=== PATIENT | male | born 1935 | race Caucasian/White ===

== ENCOUNTER 2017-01-30 11:59 | Inpatient (IN) | payer MEDICARE, OTHER ==
[~2017-01-30] VITALS: Ht 167.6 cm; Wt 85.6 kg
--- NOTE | ~2017-01-30 | CO ---
Unit #: [id number] #: [id number] Patient: MENDOZA WIGGINS [id number] [address] [place], [place] [address] [id number] MR#: [id number] NAME: MENDOZA WIGGINS ROOM: 560 Age: 81 Sex: M Admission Date: 01/30/2017 : 1935 Attending Physician: Harpreet Santillan M.D. Primary Care Physician: Mendoza Malin D.O. Consultation Date: 01/30/2017 CONSULTATION REPORT REASON FOR CONSULTATION Renal insufficiency. Thank you very much for asking me to see this patient in consultation. HISTORY OF PRESENT ILLNESS Mr. Wiggins is an 81-year-old male, who presented to the hospital earlier today, complaining of increased swelling in his legs and penis. Upon presentation, noted to have a BUN and creatinine of 71 and 3.5. Because of this, I was asked to see the patient. The patient states he has never had any problems with his kidneys that he knows of. He has a history of BPH, but he denies ever having any prostate problems. He has a history of hypertension. He states he just had been feeling well over the last few weeks and his swelling has been worse over the last 2 weeks. He had some diarrhea a couple of weeks ago, but that resolved. He denies any chest pain or shortness of breath. He denies taking any nonsteroidals. 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 ALLERGIES Include sulfa. SOCIAL HISTORY He lives alone. He does not smoke or drink. MEDICATIONS His medicines at home include hydrochlorothiazide, aspirin, Zyloprim, Glucotrol, Lipitor, aspirin, metoprolol, Lotrel. FAMILY HISTORY Negative for kidney disease. REVIEW OF SYSTEMS He denies any fevers, chills, visual problems, sinus problems, cough, hemoptysis, sore throat, or difficulty swallowing. No neck pain or neck stiffness. Denies any chest pain, chest heaviness, or palpitations. Denies any severe shortness of breath. He denies any severe abdominal pain, nausea, vomiting, or diarrhea in the last few days. He denies any urinary symptoms; starting, stopping or burning. He says again he has had some increased swelling over the last several weeks or so. He denies any recent seizures or strokes. Unit #: [id number] #: [id number] Patient: MENDOZA WIGGINS PHYSICAL EXAMINATION GENERAL: He is alert. VITAL SIGNS: Temperature is 97.9, pulse 78, blood pressure is 170/78. HEENT: He is normocephalic and atraumatic. Pupils are equal, round, and reactive to light. Extraocular muscles are intact. Hearing appears to be normal. Mouth is clear. No erythema. No exudate. NECK: Supple. No adenopathy. CARDIAC: He appears to have a regular rhythm without a rub. No S3 or S4. LUNGS: Fairly clear bilaterally. ABDOMEN: Overweight, bowel sounds positive. EXTREMITIES: He has 2 to 3+ lower extremity swelling. : He has positive penile swelling. SKIN: He has some mild erythema in bilateral lower extremities. NEURO: He is alert and oriented. Appears to be grossly intact. DIAGNOSTIC STUDIES LABORATORY RESULTS: Sodium 141, potassium 4.0, chloride is 104, bicarb is 26, BUN and creatinine 71 and 3.5, glucose 114, calcium is 9.2. CPK is 27. Hemoglobin is 12.6, white count 6400, platelets 181,000. His UA shows specific gravity of 1.016, no protein, 2 to 5 rbc's, 2 to 5 wbc's. In 2008 creatinine 1.1, in 2009 creatinine 1.0 to 1.2 and in 2010 creatinine 1.1 that is the last I have. ASSESSMENT AND PLAN Acute renal failure. The patient assume he has acute renal failure, although I do not have any creatinine between 2010 and now. The patient does not have a Lezama catheter in and it appears to have about 2 L of urine in it. When I asked about nurse states that he had about 500 when she placed it, but she had not checked since then. Certainly, he does have volume overload on exam, but I suspect with the amount of volume he has in his Lezama that he probably has obstructive uropathy as a cause of his kidney failure. The renal ultrasounds have already been ordered, although not back yet. We will go ahead and keep Lezama in. We will have to see the patient and hopefully we would release the obstruction if that is what it is, his renal function should improve as well as his volume status should improve. His urine again, no proteinuria and only a couple of rbc's, so I am not sure if he has any active glomerulonephritis. I will go ahead and check serum protein immunofixation secondary to his age and just watch his kidney function and certainly, if it does not improve, then we will consider further workup and treatment. For now, would recommend holding his Lotrel secondary to swelling and his renal failure with the KOKI inhibitor. Hold his Lotrel for now. Certainly, we would avoid contrast dye as well as nonsteroidals and other nephrotoxins as possible. Dictated by..Erica Capps/blu TD: 01/31/2017 00:45 JOB #: [id number] Unit #: [id number] #: [id number] Patient: MENDOZA WIGGINS CONSULTATION REPORT Page 1 of 1 X Venu Valle MD X CONSULTATION REPORT
--- NOTE | ~2017-01-30 | US77 ---
[facility] A Service of [facility] RADIOLOGY TEXT RESULTS PATIENT: MENDOZA WIGGINS LOCATION: [facility] [address] : 34 UNIT #: [id number] AGE: [address]: Harpreet Santillan MD SEX: M ORDER DR: [id number] [facility] [address] [facility]. [place], [place] [address] [id number] I MR#: [id number] Acc #: [id number] NAME: MENDOZA WIGGINS : 1935 SEX: M STUDY DATE/TIME: 01/31/2017 8:14 UNIT: [facility] ROOM: [facility] STUDY DESCRIPTION: US Kidney Bilateral Complete Attending Physician: Harpreet Santillan M.D. Ordering Physician: Kathleen Esteban M.D. Primary Care Physician: Mendoza Malin D.O. MEDICAL IMAGING REPORT This report is preliminary unless electronic signature is present EXAM Renal ultrasound INDICATIONS Acute kidney. BUN 62, creatinine 2.7, eGFR 21. TECHNIQUE Lacy-scale and Doppler imaging of the bladder. COMPARISON 01/30/2017. FINDINGS The right kidney measures 15.6 cm in length. Cortical thickness 1.4 cm. Large cyst lower pole right kidney, measuring up to 9.9 cm is only partially seen. Left kidney measures 11.2 cm. No hydronephrosis. Bladder decompressed by a Lezama catheter. IMPRESSION Bladder decompressed by a Lezama catheter. No hydronephrosis. Large, partially seen cyst at the lower pole right kidney. Dictated by... Peterson Low M.D. THIS IS AN ELECTRONICALLY VERIFIED REPORT Peterson Low M.D. at 02/01/2017 8:27 AM EED/re TD: 01/31/2017 15:52 JOB #: [id number] [facility] A Service of [facility] RADIOLOGY TEXT RESULTS PATIENT: MENDOZA WIGGINS LOCATION: [facility] 560 : 34 UNIT #: [id number] AGE: [address]: Harpreet Santillan MD SEX: M ORDER DR: MEDICAL IMAGING REPORT Page 1 of 1 COPY
--- NOTE | ~2017-01-30 | CT4 ---
[facility] A Service of [facility] RADIOLOGY TEXT RESULTS PATIENT: MENDOZA WIGGINS LOCATION: C5B 560-01 : 34 UNIT #: [id number] AGE: [address]: Harpreet Santillan MD SEX: M ORDER DR: [id number] [place] [id number] [facility]. [place], [place] [address] [id number] I MR#: [id number] Acc #: [id number] NAME: MENDOZA WIGGINS : 1935 SEX: M STUDY DATE/TIME: 01/30/2017 19:31 UNIT: C5B ROOM: [facility] STUDY DESCRIPTION: CT Abd and Pelv Wo Cont Attending Physician: Harpreet Santillan M.D. Ordering Physician: Richard Grossman M.D. Primary Care Physician: Mendoza Malin D.O. MEDICAL IMAGING REPORT This report is preliminary unless electronic signature is present EXAM CT abdomen and pelvis without contrast HISTORY Abdominal pain and groin pain and swelling x4 days, dysuria x1 week history of prior colon resection. COMPARISON CT abdomen and pelvis 09/08/[address] exam was performed with one or more of the following radiation dose reduction techniques: automatic exposure control, adjustment of mA and/or kV according to patient size, and iterative reconstruction. FINDINGS Axial images performed through the abdomen and pelvis without contrast. Multiplanar reconstructed images. Abdomen: Lung bases unremarkable. Liver, spleen and gallbladder unremarkable. Pancreas unremarkable. Probable mild adrenal hyperplasia. Bilateral hydronephrosis and hydroureter possibly related to bladder outlet obstruction as the bladder is markedly distended with a thickened wall. Large exophytic cyst off the lower pole right kidney. Stomach, small bowel unremarkable. Moderate amount of colonic stool. Pelvis: The bladder is markedly distended. Small amount of gas noted in the bladder. There are multiple calcifications in the dependent portion of the bladder which may represent bladder stones or less likely passed ureteral stones. The largest measures about 6.5 mm. There is enlarged prostate. The Lezama catheter is positioned within the prostatic urethral with the balloon inflated. Repositioning recommended. Osseous structures [facility] A Service of [facility] RADIOLOGY TEXT RESULTS PATIENT: MENDOZA WIGGINS LOCATION: C5B 560-01 : 34 UNIT #: [id number] AGE: [address]: Harpreet Santillan MD SEX: M ORDER DR: remarkable for advanced arthritic change of the right hip. There is extensive multilevel degenerative disc disease and scoliosis lumbar spine. IMPRESSION 1. CT findings suggesting bladder outlet obstruction which may be due to prostatic enlargement and malpositioned Lezama catheter. There is marked distension of bladder as well as moderate bilateral hydronephrosis and hydroureter. 2. At least 3-4 calcifications seen in the dependent portion of the bladder which may represent bladder stones or less likely passed ureteral stones. 3. Malpositioned Lezama catheter with the balloon inflated at prostatic urethra. 4. Advanced arthritic changes right hip and lumbar spine. 5. Findings will be called to the floor following this dictation. Dictated by... Shahida Costello M.D. THIS IS AN ELECTRONICALLY VERIFIED REPORT Shahida Costello M.D. at 01/31/2017 5:39 PM Ni TD: 01/31/2017 08:30 JOB #: [id number] MEDICAL IMAGING REPORT Page 1 of 1 COPY
--- NOTE | ~2017-01-30 | CR72 ---
[facility] A Service of [facility] RADIOLOGY TEXT RESULTS PATIENT: MENDOZA WIGGINS LOCATION: C5B 560-01 : 34 UNIT #: [id number] AGE: [address]: Harpreet Santillan MD SEX: M ORDER DR: [id number] [facility] [address] [facility]. [place], [place] [address] [id number] I MR#: [id number] Acc #: [id number] NAME: MENDOZA WIGGINS : 1935 SEX: M STUDY DATE/TIME: 01/30/2017 14:36 UNIT: [facility] ROOM: [facility] STUDY DESCRIPTION: CR Chest Single View Portable Attending Physician: Kathleen Esteban M.D. Ordering Physician: Baljit Christian M.D. Primary Care Physician: Mendoza Malin D.O. MEDICAL IMAGING REPORT This report is preliminary unless electronic signature is present EXAM Chest x-ray one-view portable HISTORY Short of air, groin swelling, symptoms for 4 days. History of colon cancer, diabetes, essential hypertension. COMMENT Single frontal portable view of the chest timed 14:36 on 01/30/2017 compared to 06/26/2007. There is an artifact over the upper chest. There has been removal of a tunneled catheter since previous. There is mild elevation of the right hemidiaphragm with blunting at the right costophrenic angle, increased from previous. Cardiac silhouette size is top normal. There is likely vascular congestion and interstitial edema with patchy central airspace disease. There is also evidence for old granulomatous disease. No definite pleural effusion on the left. No pneumothorax. Cannot exclude some right pleural fluid versus pleural thickening. IMPRESSION 1. There is some type of artifact on the chest. 2. Interval worsening in the appearance of the chest with likely the development of vascular congestion and interstitial edema with some patchy central airspace disease. Please correlate for congestive failure clinically. Followup to ensure resolution recommended. 3. There is elevation of the right hemidiaphragm increased from previous with blunting of the right costophrenic angle which could be due to pleural fluid or pleural thickening. Dictated by... [facility] A Service of [facility] RADIOLOGY TEXT RESULTS PATIENT: MENDOZA WIGGINS LOCATION: [facility] 560-01 : 34 UNIT #: [id number] AGE: [address]: Harpreet Santillan MD SEX: M ORDER DR: Jazmín Marina M.D. THIS IS AN ELECTRONICALLY VERIFIED REPORT Jazmín Marina M.D. at 01/31/2017 7:57 AM MIKEL/cora TD: 01/31/2017 01:00 JOB #: [id number] MEDICAL IMAGING REPORT Page 1 of 1 COPY
--- NOTE | ~2017-01-30 | CO ---
Unit #: [id number] #: [id number] Patient: MENDOZA WIGGINS [id number] [address] [place], [place] [address] [id number] MR#: [id number] NAME: MENDOZA WIGGINS ROOM: 560 Age: 81 Sex: M Admission Date: 01/30/2017 : 1935 Attending Physician: Harpreet Santillan M.D. Primary Care Physician: Mendoza Malin D.O. Consultation Date: 01/31/2017 CONSULTATION REPORT DICTATED FOR Viral Portillo M.D. REASON FOR CONSULT Lower extremity edema. 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 He also has never been a smoker. The patient presented to the [facility] ED on 01/30/2017 with complaints of scrotal edema. The patient states that he has had the scrotal edema for the last 2 weeks and he also has noted lower extremity swelling for the last 4 to 5 weeks. In the ED, the patient had a CT scan of the abdomen and pelvis that showed bladder outlet obstruction possibly secondary to an enlarged prostate with marked bladder distention, moderate bilateral hydronephrosis, and hydroureter. He also had a chest x-ray that showed some vascular congestion. The patient had a stress test in 2006 that showed no ischemia with an EF of 60%. The patient has had no further cardiac workup since that time. The patient denies any kind of chest pain, pressure, or tightness. No nausea or vomiting. No palpitations. No syncope. No presyncope. No lightheadedness or dizziness and no shortness of breath with exertion. Cardiology was asked to evaluate the patient for possible heart failure with the lower extremity edema as well as the vascular congestion on x-ray. PAST MEDICAL HISTORY 1. Hypertension, controlled. 2. Hyperlipidemia, controlled. 3. Diabetes, controlled with an A1c of 5.5. 4. Stress test in 2006 that showed no ischemia with an EF of 60%. 5. Never smoker. PAST SURGICAL HISTORY 1. Hip surgery. 2. Colon surgery. SOCIAL HISTORY The patient lives alone, where he does his own laundry; however, he has someone who does his cleaning for him as well as getting his groceries and taking care of the trash for him. The patient does use a walker to get Unit #: [id number] #: [id number] Patient: MENDOZA WIGGINS. He states that he ambulates in his house mostly but does not get any shortness of breath with exertion. The patient has never been a smoker. Denies alcohol abuse or any other illicit drug abuse. FAMILY HISTORY The patient has no family history of heart disease, [place], congestive heart failure, or anything else cardiac related. ALLERGIES Include sulfa. HOME MEDICATIONS Include Zyloprim 100 mg p.o. daily, Inderal 120 mg p.o. daily, primidone 100 mg p.o. at bedtime, Neurontin 300 mg p.o. daily, Lipitor 40 mg p.o. daily. REVIEW OF SYSTEMS Ten-point review of systems negative except for what is listed above in the HPI. PHYSICAL EXAMINATION GENERAL: This is an 81-year-old white male, who is alert and oriented x3, in no apparent distress. VITAL SIGNS: Blood pressure 146/70, temperature 98.2, pulse 75, respirations 16. HEENT: Pupils are equal, round, and reactive. Oral mucosa is moist. NECK: No JVD. No thyromegaly. No lymphadenopathy. No carotid bruits. HEART: S1, S2. No S3 or S4. No clicks, no rubs, no murmurs. LUNGS: Faint crackles at bilateral bases. ABDOMEN: Soft. Bowel sounds positive. Nontender. Nondistended. : Lezama catheter in place with some bloody drainage noted around the site. EXTREMITIES: 2 to 3+ bilateral lower extremity pitting edema. NEUROLOGICAL: No neuro deficits noted. DIAGNOSTIC STUDIES LABORATORY RESULTS: Include hemoglobin A1c of 5.5. Troponin less than 0.03, then less than 0.03, then 0.03. CK total is 25. Sodium 142, potassium 3.5, chloride 106, CO2 of 27, glucose 169, BUN 62, creatinine 2.7. AST 18, ALT 9, alkaline phosphatase 8. Magnesium 1.6. White count 6.9, hemoglobin 12.3, hematocrit 37.3, and platelets are 195. UA showed protein and blood. TSH 1.22. IMAGING STUDIES: CT of the abdomen and pelvis showed bladder outlet obstruction may be secondary to prostate enlargement and malposition Lezama, marked distention of the bladder as well as moderate bilateral hydronephrosis and hydroureter. A 3 to 4 calcifications seen in the dependent portion of the bladder, which could be bladder stones or passed ureteral stone. Advanced arthritic changes of the right hip and lumbar spine. Chest x-ray showed interval worsening likely development of vascular congestion and interstitial edema. IMPRESSION 1. Bilateral and scrotal edema. 2. Possible new onset heart failure, echo is pending. 3. Acute kidney injury secondary to bladder obstruction versus congestive Unit #: [id number] #: [id number] Patient: MENDOZA WIGGINS heart failure. 4. Hypertension. 5. Hyperlipidemia. 6. Diabetes. PLAN The patient has had no stress since the 2006 stress, which showed normal EF and no ischemia at that time. The patient denies any kind of anginal symptoms. Echo is completed, but the read is pending at this time. Renal suspects that the lower extremity swelling and the renal failure is likely secondary to the urinary obstruction as renal function has improved with today's lab work. We will wait on the echo to be read to decide on if the patient needs diuretics or is impacted on any kind of heart failure. At this time, we will await for Dr. Portillo to see the patient. I have discussed the plan of care with him over the phone and the patient is agreeable to the plan of care at this time. Further recommendations pending Dr. Portillo's review of the patient as well as the echo results. Dictated by... SALVADOR Liz TD: 02/01/2017 05:29 JOB #: [id number] CONSULTATION REPORT Page 1 of 1 X X CONSULTATION REPORT
--- NOTE | ~2017-01-30 | CO ---
Unit #: [id number] #: [id number] Patient: MENDOZA WIGGINS [id number] [address] [address] [id number] I MR#: [id number] NAME: MENDOZA WIGGINS ROOM: 560 Age: 81 Sex: M Admission Date: 01/30/2017 : 1935 Attending Physician: Harpreet Santillan M.D. Primary Care Physician: Mendoza Malin D.O. Consultation Date: 01/31/2017 CONSULTATION REPORT REASON FOR CONSULTATION Urinary retention with bilateral hydronephrosis. HISTORY OF PRESENT ILLNESS This 81-year-old man presented with increasing lower extremity edema and is noted to have congestive heart failure and acute renal failure. Nephrology was consulted and noted 500 mL residual in the bladder when a catheter was placed with ongoing spontaneous diuresis. The patient is unaware of voiding difficulties leading to the admission and denies nocturia, hesitancy, frequency, or urgency and evidently was voiding in large amounts despite obvious retention. He is known to me since urinary tract infection and sepsis here at [facility] in 2006 and was followed for a time for chronically elevated PSA and BPH, but he has not been seen for 3 years. He had a PSA of 6.85 when last seen. He has not taken any medications for BPH prior to this admission and has been started on Flomax. PAST MEDICAL HISTORY Diabetes, hypertension, colon cancer status post low anterior resection with radiation and chemotherapy, hyperlipidemia. PAST SURGICAL HISTORY Low anterior resection and left hip. MEDICATIONS At home, Lipitor, gabapentin, hydrochlorothiazide, metformin, Norvasc, tramadol, propranolol, allopurinol, primidone, placed on Flomax today. ALLERGIES Sulfa. FAMILY HISTORY Noncontributory and negative for prostate cancer. SOCIAL HISTORY Nonsmoker. Lives alone. REVIEW OF SYSTEMS Worsening edema in addition to urologic review of systems above. PHYSICAL EXAMINATION GENERAL: The patient has developed a tremor since last seen and sitting Unit #: [id number] #: [id number] Patient: MENDOZA WIGGINS up in bed with markedly swollen lower extremities. Lezama catheter draining mildly orange urine. HEENT: Unremarkable. ABDOMEN: Large, full, soft, nontender. : Phallus partially concealed, uncircumcised. Normal testes and epididymides. Normal descended. RECTAL: Digital exam, normal anus and sphincter tone. Prostate feels soft, smooth, 60 g. EXTREMITIES: Edema as noted. NEURO: Grossly intact other than tremor. SKIN: Warm and pink. PSYCHIATRIC: Alert and oriented. Normal affect and mood. VITAL SIGNS: Temperature 97.5, pulse 71, blood pressure 150/95, respirations 16, height 5 feet 6 inches, weight 197 pounds. DIAGNOSTIC STUDIES LABORATORY RESULTS: Urinalysis normal before placement of catheter. BUN 71, creatinine 3.5 decreased to 62 and 2.7 respectively with catheter. IMAGING STUDIES: X-ray and CT scan shows bilateral hydronephrosis, very large bladder. Renal ultrasound this morning shows hydronephrosis, resolved. IMPRESSION 1. Acute renal failure and congestive heart failure consistent with secondary to urinary retention. 2. Retention probably combination of prostatism from benign prostatic hyperplasia well compensated and diabetic cystopathy. 3. History of elevated PSA. 4. At this point, presume high risk for transurethral resection of the prostate. PLAN We will check PSA. Agree with tamsulosin and will add finasteride daily. If tolerates the regimen may increase the tamsulosin. For now, we will observe tentative voiding trial after several days of bladder rest and diuresis. Thank you, Kathleen, for the consultation. Dictated by... Mendoza Jones M.D. CULLEN/blu TD: 02/02/2017 01:13 JOB #: [id number] CC: Kathleen Esteban M.D. Unit #: [id number] #: [id number] Patient: MENDOZA WIGGINS CONSULTATION REPORT Page 1 of 1 X Mendoza Jones MD CONSULTATION REPORT
--- NOTE | ~2017-01-30 | DS ---
Unit #: [id number] #: [id number] Patient: MENDOZA WIGGINS [id number] [address] [address] [id number] I MR#: [id number] NAME: MENDOZA WIGGINS ROOM: 560 Age: 81 Sex: M Admission Date: 01/30/2017 : 1935 Discharge Date: Attending Physician: Harpreet Santillan M.D. Primary Care Physician: Mendoza Malin D.O. DISCHARGE SUMMARY PRIMARY DIAGNOSIS Acute kidney injury, secondary to prostatic obstruction. SECONDARY DIAGNOSES 1. Urinary obstruction secondary to benign prostatic hypertrophy likely. 2. Hypertension. 3. Hematuria, secondary to Lezama trauma, improving. 4. Hypokalemia. 5. Physical deconditioning. 6. Acute on chronic diastolic heart failure. 7. Diabetes mellitus type 2. HOSPITAL COURSE The patient was admitted to the hospital. Initial creatinine was 3.5. Lezama was placed. It was initially in the wrong area with balloon inflated in the prostatic urethra. Balloon was deflated after imaging showed the balloon in the wrong location and Lezama was advanced and placed in the correct location. Creatinine has come down to 1.3 and he has had some hematuria but has not required any bladder irrigation as it has been only moderate in intensity and is expected to clear up with simple monitoring. Patient is being discharged to subacute rehab. He was started on finasteride and Flomax in consultation with urology and would be ready for a voiding trial on Tuesday. Initial consultants included Dr. Naveed Reynolds with cardiology and Dr. Amanuel Valle with nephrology. DISCHARGE DISPOSITION To subacute rehab. DISCHARGE STATUS Stable. DISCHARGE ACTIVITY With assistance only. DISCHARGE DIET A diabetic 2000 mg sodium per day diet. DISCHARGE FOLLOWUP Discharge followup is with his PCP in three to six weeks and follow up with Dr. Stanislav Arias with urology in three to four weeks, and patient is to have a voiding trial at subacute rehab on Tuesday with removal of the catheter at that time. DISCHARGE MEDICATIONS Unit #: [id number] #: [id number] Patient: MENDOZA WIGGINS 1. Magnesium oxide 400 mg p.o. once daily. 2. Flomax 0.4 mg p.o. nightly. 3. Neurontin 300 mg p.o. daily. 4. Primidone 100 mg p.o. nightly. 5. Inderal 120 mg p.o. daily. 6. Zinc oxide 30 mg tube apply to lesions on bilateral legs once daily. 7. Lipitor 40 mg p.o. daily. 8. Cozaar 25 mg p.o. daily. 9. Allopurinol 100 mg p.o. daily. 10. Proscar 5 mg p.o. nightly. 11. Potassium chloride 20 mEq p.o. daily for five days. 12. Metformin 500 mg p.o. b.i.d. Dictated by... Harpreet Santillan M.D. An TD: 02/02/2017 15:26 JOB #: [id number] DISCHARGE SUMMARY Page 1 of 1 X Harpreet Santillan MD X DISCHARGE SUMMARY
--- NOTE | ~2017-01-30 | EKG ---
PATIENT: MENDOZA WIGGINS UNIT #: [id number] Ventricular Rate: 75 BPM Atrial Rate: 75 BPM P-R Interval: 138 ms QRS Duration: 106 ms Q-T Interval: 400 ms QTC Calculation(Bezet): 446 ms P [place]: 81 degrees Calculated R [place]: -27 degrees Calculated T [place]: 33 degrees Diagnosis Line: Normal sinus rhythm Diagnosis Line: Septal infarct , age undetermined Diagnosis Line: Abnormal ECG Diagnosis Line: Diagnosis Line: Confirmed by LILA DE GUZMAN MD ([id number]) on Diagnosis Line: 01/30/2017 11:17:59 PM INTERPRETING MD: GEGE KRAFT
--- NOTE | ~2017-01-30 | HP ---
Unit #: [id number] #: [id number] Patient: MENDOZA WIGGINS [id number] [place], [place] [address] [id number] I MR#: [id number] NAME: MENDOZA WIGGINS ROOM: 93737 Age: 81 Sex: M Admission Date: 01/30/2017 : 1935 Attending Physician: Kathleen Esteban M.D. Primary Care Physician: Mendoza Malin D.O. HISTORY AND PHYSICAL CHIEF COMPLAINT Swelling in groin. HISTORY OF PRESENT ILLNESS The patient is an 81-year-old male with a past medical history of hypertension, hyperlipidemia, diabetes, and colon cancer, who presented to the emergency department for evaluation of the above. The patient states that he has had at least a four to five week history of increasing lower extremity swelling. He denies any chest pain and no shortness of breath. He states that pain in his knee limits his activity. He denies any dyspnea on exertion. He sleeps in a recliner and has done so since 2006. He denies any paroxysmal nocturnal dyspnea and no chest pain. He denies any urinary symptoms. In the emergency department, initial pulse and blood pressure were 78 and 170/78, respectively. Chest x-ray shows findings suggestive of congestive heart failure. Laboratory is notable for BUN and creatinine of 71 and 3.5, respectively. The patient is being admitted to [facility] for evaluation and further treatment. He denies ever being told he has any kidney problems. He denies ever being told he has congestive heart failure. PAST MEDICAL HISTORY 1. Admission to [facility] May 10 through May 17, 2007, for colon cancer involving the sigmoid colon. He underwent low anterior resection during that admission. 2. Colon cancer status post surgery and chemotherapy. 3. Hypertension. 4. Hyperlipidemia. 5. Diabetes. 6. Stress test May 11, 2007, showed no obvious stress-induced ischemia with an ejection fraction of 60%. PAST SURGICAL HISTORY 1. Low anterior resection. 2. Left hip surgery. 3. Colonoscopy. SOCIAL HISTORY The patient lives alone. He walks with a walker. He denies tobacco or alcohol use. His code status is a Full Code. His in 2006. His next of kin is his sister in [place]. He does not have any children. Unit #: [id number] #: [id number] Patient: MENDOZA WIGGINS FAMILY HISTORY Notable for his mother having diabetes. ALLERGIES Sulfa. HOME MEDICATIONS 1. Lipitor. 2. Gabapentin. 3. Hydrochlorothiazide. 4. Metformin. 5. Norvasc. 6. Tramadol. 7. Propranolol. 8. Allopurinol. 9. Primidone. Home medications will need to be reviewed and verified. REVIEW OF SYSTEMS A complete review of systems is negative except as indicated in the History of Present Illness. The patient states that he has actually lost weight, approximately 40 pounds over the past three to four months. He denies any vomiting or diarrhea and no urinary symptoms. He states that his blood sugars are typically in the 100s. PHYSICAL EXAMINATION VITAL SIGNS: Temperature is 97.9, pulse 78, respirations 15, blood pressure 170/78, and oxygen saturation is 98% on room air. GENERAL: Patient is a very pleasant male who is awake, alert, and in no acute distress. HEENT: Head is atraumatic. Mucous membranes are moist. NECK: Supple. Trachea is midline. CARDIOVASCULAR: Regular rate and rhythm. LUNGS: Relatively clear to auscultation bilaterally with no increased work of breathing. ABDOMEN: Soft and nontender with bowel sounds present in all four quadrants. EXTREMITIES: With 3+ pitting edema to the groin area. GENITOURINARY: There is scrotal edema. NEUROLOGIC: Patient is oriented x3. He knows the year. He knows it is summer. He is not sure of the month. He is moving all extremities. PSYCHIATRIC: Mood and affect are normal. Patient is cooperative. SKIN: Skin of examined areas is warm and dry. DIAGNOSTIC STUDIES LABORATORY: Complete blood count notable for hemoglobin and hematocrit of 12.4 and 38.1, respectively. Urinalysis is notable for trace leukocyte esterase. Basic metabolic panel notable for glucose of 114 and BUN and creatinine 71 and 3.5, respectively. CPK is 27. IMAGING: Chest x-ray shows findings concerning for heart failure. ASSESSMENT The patient is an 81-year-old male with: 1. Bilateral lower extremity edema. 2. Acute kidney injury. The patient's creatinine was 1.1 on December 16, Unit #: [id number] #: [id number] Patient: MENDOZA WIGGINS 2012. It is 3.5 today. Home medications need to be reviewed and verified, but he is on metformin which could be contributing, as well as hydrochlorothiazide. The patient denies any NSAID use. 3. Congestive heart failure. The patient denies ever being told he has congestive heart failure. Ejection fraction was 60% on stress test from May 11, 2007. 4. Hypertension. 5. Hyperlipidemia. 6. Diabetes. 7. History of colon cancer, status post low anterior resection and chemotherapy. PLAN 1. Admit to intermediate level. 2. Two gram sodium, 1800 mL fluid-restricted, heart-healthy, consistent carbohydrate diet. 3. A 2D echo for further evaluation of CHF. 4. Strict I/Os. 5. Daily weights. 6. EKG and cardiac enzymes. 7. TSH. 8. Consult Dr. Reynolds regarding new CHF. 9. Urine sodium, creatinine, and eosinophils. 10. Renal ultrasound for further evaluation of acute kidney injury. 11. Bladder scan, check postvoid residual. 12. Hold nephrotoxic medications. 13. Consult Dr. Valle regarding acute kidney injury. 14. Hemoglobin A1c. 15. Low-dose sliding scale insulin with Accu-Cheks. 16. Check magnesium and phosphorus levels, as well as LFTs. 17. Repeat labs in the morning. 18. Lovenox for DVT prophylaxis. 19. Additional workup and consultants based on above. 1. Dictated by Erica Lawson/kristina TD: 01/30/2017 17:23 JOB #: [id number] HISTORY AND PHYSICAL Page 1 of 1 X Kathleen Esteban MD X HISTORY AND PHYSICAL
[~2017-01-30 11:59] MED LIST: ACTOPLUS PO; ACTOS; ASPIRIN PO; GLUCOTROL XL PO; HCTZ PO; INDERAL60 MG PO; LIPITOR PO; LOTREL 10/40 PO; LOTREL PO; METOPROLOL TAR25 MG PO; TOPROL XL PO; VITAMIN C PO; ZETIA PO; ZYLOPRIM PO
[2017-01-30 13:33] LABS: URINE SOURCE CLEAN CATCH
[2017-01-30 13:41] LABS: URINE APPEARANCE CLEAR; URINE BILIRUBIN NEG (NEG); URINE BLOOD NEG (NEG); URINE COLOR YELLOW; URINE GLUCOSE NEG (NEG); URINE KETONE NEG (NEG); URINE LEUKOCYTE ESTERASE TRACE (NEG); URINE NITRATE NEG (NEG); URINE PROTEIN NEG (NEG); URINE SPECIFIC GRAVITY 1.016 (1.003-1.035); URINE UROBILINOGEN 0.2 MG/DL (NEG)
[2017-01-30 13:41] LABS: BASOPHIL% 0.7 % (0-2.5); DIFF IND NO; EOSINOPHIL# 0.1 X10e3 (0-0.7); EOSINOPHIL% 1.8 % (0.0-7.0); HEMATOCRIT 38.1 % (38.0-50.0); HEMOGLOBIN 12.4 gm/dL (13.0-16.0); LYMPHOCYTE# 0.8 X10e3 (1.0-3.5); LYMPHOCYTE% 12.9 % (17.0-45.0); MEAN CELL VOLUME 90.9 FL (83-96); MEAN CORPUSCULAR HEMOGLOBIN 29.7 PG (28-34); MEAN CORPUSCULAR HGB CONC 32.6 g/dL (30-36); MEAN PLATELET VOLUME 8.8 FL (6.5-11.5); MONOCYTE# 0.5 X10e3 (0-1.0); MONOCYTE% 7.9 % (3.0-12.0); NEUTROPHIL# 4.9 X10e3 (1.5-7.1); NEUTROPHIL% 76.7 % (40-75); PLATELET COUNT 181 X10e3 (140-420); RED BLOOD COUNT 4.19 X10e (3.90-5.60); RED CELL DISTRIBUTION WIDTH 15.1 % (11.0-15.5); WHITE BLOOD COUNT 6.4 X10e3 (4.0-10.5)
[2017-01-30 13:42] LABS: URINE BACTERIA AUWI NEG (NEGATIVE); URINE SQUAMOUS EPITHELIAL CELL NONE SEEN /[HPF]
[2017-01-30 13:43] LABS: CULTURE INDICATED? NO
[2017-01-30 14:02] LABS: BUN/CREATININE RATIO 20.28; CALCIUM SERUM 9.2 mg/dL (8.4-10.2); CREATININE SERUM 3.5 mg/dL (0.6-1.4); GLOM FILT RATE Estimated 15.3 mL/min (>60)
[2017-01-30] MEDS ORDERED: MYSOLINE50 M2 PO (15:17)
[2017-01-30] MEDS ORDERED: TRAMADOL HCL50 M2 PO (15:18)
[2017-01-30] MEDS ORDERED: LOTREL 5-40 MG1 EACH PO (15:20)
[2017-01-30] MEDS ORDERED: NEURONTIN300 MG PO (15:21)
[2017-01-30 17:26] LABS: ALBUMIN SERUM 3.3 g/dL (3.5-5.0); BILIRUBIN, DIRECT 0.1 mg/dL (0.0-0.2); BILIRUBIN,INDIRECT 0.9 mg/dL (0.0-0.9); MAGNESIUM 1.8 mg/dL (1.6-3.0); PHOSPHOROUS 4.8 mg/dL (2.5-4.6); PROTEIN TOTAL SERUM 6.6 g/dL (6.0-8.3)
[2017-01-30 23:43] LABS: CK TOTAL 30 IU/L (36-174)
[2017-01-31] MEDS ORDERED: LIPITOR40 MG PO (00:24)
[2017-01-31 03:41] LABS: URINE APPEARANCE BLOODY; URINE BILIRUBIN NEG (NEG); URINE BLOOD 4+ (NEG); URINE COLOR RED; URINE GLUCOSE NORM (NEG); URINE KETONE NEG (NEG); URINE LEUKOCYTE ESTERASE NEG (NEG); URINE NITRATE NEG (NEG); URINE PROTEIN 3+ (NEG); URINE SPECIFIC GRAVITY 1.015 (1.003-1.035); URINE UROBILINOGEN NORM (NEG)
[2017-01-31 03:42] LABS: URBCS1 AUWI INNUM /[HPF] (0-2)
[2017-01-31 03:44] LABS: CREATININE,RANDOM URINE 50 mg/dL; SODIUM URINE RANDOM 80 mmol/L
[2017-01-31 05:15] LABS: BASOPHIL# 0.1 X10e3 (0-0.3); BASOPHIL% 0.7 % (0-2.5); EOSINOPHIL# 0.1 X10e3 (0-0.7); EOSINOPHIL% 0.8 % (0.0-7.0); HEMATOCRIT 37.3 % (38.0-50.0); HEMOGLOBIN 12.3 gm/dL (13.0-16.0); LYMPHOCYTE# 1.1 X10e3 (1.0-3.5); LYMPHOCYTE% 15.9 % (17.0-45.0); MEAN CELL VOLUME 90.8 FL (83-96); MEAN PLATELET VOLUME 8.7 FL (6.5-11.5); MONOCYTE# 0.7 X10e3 (0-1.0); MONOCYTE% 9.7 % (3.0-12.0); NEUTROPHIL% 72.9 % (40-75); PLATELET COUNT 195 X10e3 (140-420); RED BLOOD COUNT 4.11 X10e (3.90-5.60); RED CELL DISTRIBUTION WIDTH 15.2 % (11.0-15.5); WHITE BLOOD COUNT 6.9 X10e3 (4.0-10.5)
[2017-01-31 05:20] LABS: DIFF IND NO
[2017-01-31 05:45] LABS: ALBUMIN SERUM 3.1 g/dL (3.5-5.0); BILIRUBIN,TOTAL 0.9 mg/dL (0.2-2.0); BUN/CREATININE RATIO 22.96; CALCIUM SERUM 8.8 mg/dL (8.4-10.2); CREATININE SERUM 2.7 mg/dL (0.6-1.4); MAGNESIUM 1.6 mg/dL (1.6-3.0); PHOSPHOROUS 4.4 mg/dL (2.5-4.6); POTASSIUM 3.5 mmol/L (3.5-5.1)
[2017-01-31 05:54] LABS: CK TOTAL 25 IU/L (36-174)
[2017-02-01 06:45] LABS: HEMATOCRIT 36.1 % (38.0-50.0); HEMOGLOBIN 11.8 gm/dL (13.0-16.0); MEAN CELL VOLUME 90.8 FL (83-96); MEAN CORPUSCULAR HEMOGLOBIN 29.6 PG (28-34); MEAN CORPUSCULAR HGB CONC 32.7 g/dL (30-36); MEAN PLATELET VOLUME 8.8 FL (6.5-11.5); RED BLOOD COUNT 3.97 X10e (3.90-5.60); RED CELL DISTRIBUTION WIDTH 14.6 % (11.0-15.5); WHITE BLOOD COUNT 7.2 X10e3 (4.0-10.5)
[2017-02-01 07:14] LABS: BUN/CREATININE RATIO 26.47; CREATININE SERUM 1.7 mg/dL (0.6-1.4); GLOM FILT RATE Estimated 36.8 mL/min (>60); MAGNESIUM 1.7 mg/dL (1.6-3.0); POTASSIUM 3.4 mmol/L (3.5-5.1)
[2017-02-02 06:19] LABS: BUN/CREATININE RATIO 27.69; CALCIUM SERUM 8.6 mg/dL (8.4-10.2); CREATININE SERUM 1.3 mg/dL (0.6-1.4); GLOM FILT RATE Estimated 50.8 mL/min (>60); MAGNESIUM 1.7 mg/dL (1.6-3.0); POTASSIUM 3.8 mmol/L (3.5-5.1)
[2017-02-02 22:32] LABS: PSA, FREE 8.18 ng/mL (())
== END 2017-02-02 23:00 | DRG 725 ==
LOC: CED 11:59 → C5B 16:20 → CEDOF 16:20 → C5B 16:59 → CED 16:59 → CEDOF 22:33 → C5B 22:33
PROVIDERS: Emergency Medicine; Family Medicine; Internal Medicine; Internal Medicine Nephrology; Urology
PROC: B246YZZ Ultrasonography of Right and Left Heart using Other Contrast (ICD-10-PCS; principal; 2017-01-31)
DX: N40.1 Benign prostatic hyperplasia with lower urinary tract symptoms (principal); I50.33 Acute on chronic diastolic (congestive) heart failure; N17.9 Acute kidney failure, unspecified; T83.83XA Hemorrhage due to genitourinary prosthetic devices, implants and grafts, initial encounter; N13.8 Other obstructive and reflux uropathy; N13.30 Unspecified hydronephrosis; R31.9 Hematuria, unspecified; E11.9 Type 2 diabetes mellitus without complications; I11.0 Hypertensive heart disease with heart failure; E78.5 Hyperlipidemia, unspecified; E87.6 Hypokalemia; Z85.038 Personal history of other malignant neoplasm of large intestine; Z92.21 Personal history of antineoplastic chemotherapy; Z88.2 Allergy status to sulfonamides; R33.8 Other retention of urine
CPT/HCPCS: 36415; 51702; 71010; 74176; 76770; 80048; 80053; 80076; 81003; 82550; 82570; 82947; 83036; 83735; 84100; 84153; 84154; 84300; 84443; 84484; 85025; 85027; 86334; 87086; 89190; 93005; 93306; 97110; 97116; 97163; 97167; 97530; 97535; 99285; G8978-GP; G8979-GP; G8987-GO; G8988-GO; J1650; J1815; J3475

== ENCOUNTER 2017-03-13 06:42 | Inpatient (IN) | payer MEDICARE, OTHER ==
[~2017-03-13] VITALS: Ht 177.8 cm; Wt 87.4 kg
--- NOTE | ~2017-03-13 | HP ---
Unit #: [id number] #: [id number] Patient: MENDOZA WIGGINS [id number] [address] [address] [id number] I MR#: [id number] NAME: MENDOZA WIGGINS ROOM: 576 Age: 81 Sex: M Admission Date: 03/13/2017 : 1935 Attending Physician: Kathleen Esteban M.D. Primary Care Physician: Mendoza Malin D.O. HISTORY AND PHYSICAL CHIEF COMPLAINT Possible GI bleed. HPI The patient is an 81-year-old male with past medical history of chronic kidney disease, hypertension, hyperlipidemia, CHF, diabetes, BPH, colon cancer who presented to the emergency department for evaluation of the above. The patient states that he has had 2 bouts of black emesis. The initial episode was on March 11, 2017. The second episode was yesterday. He denies any abdominal pain. No fever, no cough or cold symptoms. No shortness of breath, no palpitations or chest pain. He has a Lezama catheter in place. He states that he has lost 50 pounds over the past year. He denies any blood in the stool or black tarry stool. The patient had a colonoscopy July 22, 2010, that showed small internal hemorrhoids as well as polyp in the ascending colon. Pathology report showed tubular adenoma. Hemoglobin is 11.3. He is being admitted to [facility] for evaluation and further treatment. PAST MEDICAL HISTORY 1. Admission to [facility] January 30, 2017, for acute kidney injury secondary to prostatic obstruction. The patient had hematuria secondary to Lezama trauma. He was discharged to rehab with Lezama catheter in place. He was seen in consultation by urology. 2. Colon cancer, status post surgery and chemotherapy. 3. Hypertension. 4. Hyperlipidemia. 5. Diabetes. 6. BPH. 7. Congestive heart failure. The patient had an echocardiogram in January. I don't see any results in [facility], however. CHF was listed as a discharge diagnosis. There was a stress test in [facility] from May 11, 2007, that showed an ejection fraction of 60. PAST SURGICAL HISTORY 1. Low anterior resection for colon cancer. 2. Left hip surgery. 3. Colonoscopy. SOCIAL HISTORY The patient is currently in rehab. He was previously living alone. He walks with a walker. He denies tobacco or alcohol use. His code status is a Full Code. His in 2006. His next of kin is his Unit #: [id number] #: [id number] Patient: MENDOZA WIGGINS sister in [place]. FAMILY HISTORY Notable for his mother having diabetes. ALLERGIES Sulfa. HOME MEDICATIONS 1. Zovirax. 2. Lipitor. 3. Neurontin. 4. Inderal. 5. Zyloprim. 6. Magnesium. 7. Cozaar. 8. Glucophage. 9. Florastor. 10. Protein supplement. 11. Mysoline. 12. Finasteride. 13. Flomax. 14. Bisacodyl. 15. Imodium. 16. Dulcolax. 17. Tylenol. 18. Docusate. 19. MiraLAX. Home medications will need to be reviewed and verified. REVIEW OF SYSTEMS A complete review of systems is negative except as indicated in the HPI. DIAGNOSTIC STUDIES CARDIOVASCULAR: EKG shows sinus rhythm with premature atrial complex at a rate of 84 beats per minute. INR is 1.2. Comprehensive metabolic panel notable for a sodium of 129, chloride 95, glucose 190, BUN and creatinine 67 and 2.9 respectively. ALT is 50. Alkaline phosphatase 94. Total protein 5.8. Albumin is 2.5. Complete blood count notable for white blood cell count of 17.6, hemoglobin and hematocrit 11.3 and 33.9 respectively. Troponin is 0.03. Urinalysis notable for trace leukocyte esterase, 1+ protein, 3+ blood with 5-10 red blood cells, 10-25 white blood cells. PHYSICAL EXAMINATION VITAL SIGNS: Temperature is 99, pulse 79, respirations 23, blood pressure 148/69. Oxygen saturation is 96% on room air. GENERAL: The patient is a very pleasant male who is awake and alert, in no acute distress. HEENT: The head is atraumatic. Mucous membranes are moist. NECK: Supple. Trachea is midline. CARDIOVASCULAR: Cardiovascular is regular rate and rhythm. Unit #: [id number] #: [id number] Patient: MENDOZA WIGGINS LUNGS: Lungs are clear to auscultation bilaterally with no increased work of breathing. ABDOMEN: Abdomen is soft, nontender with bowel sounds present in all four quadrants. EXTREMITIES: Extremities show 1-2+ pitting edema. NEURO: The patient is awake and alert. He follows commands. PSYCH: Mood and affect are normal. The patient is cooperative. SKIN: Skin of examined areas is warm and dry. ASSESSMENT The patient is a 81-year-old male with: 1. GI bleed. 2. Normocytic anemia. The patient's hemoglobin was 12.3 on January 31, 2017. It is 11.3 today. 3. Acute on chronic kidney disease. The patient's creatinine was 1.3 on February 02, 2017. It is 2.9 today. 4. Leukocytosis. 5. Urinary tract infection. Review of urine cultures in [facility] show that the patient had a urine culture on July 25, 2006, that grew greater than 100,000 E. coli that was resistant to Bactrim and tetracycline. 6. Hypertension. 7. Congestive heart failure. The patient had an echocardiogram in January. There are no results in [facility]. Ejection fraction was 60% on stress test from May of 2007. 8. Diabetes with hemoglobin A1c of 5.8. 9. BPH with Lezama catheter currently in place. 10. Hyperlipidemia. 11. Colon cancer, status post low anterior resection. PLAN 1. Admit for observation to intermediate level. 2. Clear liquid diet for possible endoscopy. 3. Hemoglobin and hematocrit q.6 hours. 4. Protonix. 5. Strict I's and O's. 6. EKG and cardiac enzymes. 7. Check magnesium level. 8. Consult Dr. Herman regarding GI bleed. 9. Consult Dr. Valle regarding acute on chronic kidney disease. 10. Additional workup and consultants based on above. 11. SCDs for DVT prophylaxis. Dictated by Erica Lawson/german TD: 03/13/2017 14:19 JOB #: [id number] Unit #: [id number] #: [id number] Patient: MENDOZA WIGGINS HISTORY AND PHYSICAL Page 1 of 1 X Kathleen Esteban MD HISTORY AND PHYSICAL
--- NOTE | ~2017-03-13 | CO ---
Unit #: [id number] #: [id number] Patient: MENDOZA WIGGINS [id number] [address] [place], [place] [address] [id number] I MR#: [id number] NAME: MENDOZA WIGGINS ROOM: 576 Age: 81 Sex: M Admission Date: 03/14/2017 : 1935 Attending Physician: Harpreet Santillan M.D. Primary Care Physician: Mendoza Malin D.O. Consultation Date: 03/16/2017 CONSULTATION REPORT REASON FOR CONSULTATION Urinary retention. HISTORY OF PRESENT ILLNESS This 81-year-old man was admitted for hematemesis and is to have EGD this morning. His hemoglobin has dropped. He is otherwise stable. He has an indwelling Lezama catheter which he would like to have removed as soon as possible. He is well known to me for a long history of BPH and elevated PSA before I saw him most recently on 01/31/2017 for urinary retention with bilateral hydronephrosis. At that time, we had recognized and discussed the increased risk of a TUR of prostate and a PSA was ordered and he was started on finasteride and tamsulosin neither of which he had been taking with plans for a voiding trial after a period of bladder rest. He did not see me in followup and most likely his PSA was sent out, because now I see that it was quite elevated. In the meantime, he saw Dr. Pearson my associate on 03/03/2017. He says at the direction of his [id number] and a TUR of prostate was planned on that visit. He tells me this morning, he would like to have that done when medically appropriate and by me if possible. His Lezama catheter had to be changed in the emergency department 3 days ago. PAST MEDICAL HISTORY Diabetes, hypertension, colon cancer status post low anterior resection with radiation and chemotherapy, hyperlipidemia, renal insufficiency, upper GI bleed. PAST SURGICAL HISTORY Low anterior resection and left hip. MEDICATIONS On admission include Levaquin, Zovirax, Lipitor, Neurontin, Inderal, Zyloprim, magnesium, Cozaar, Glucophage, Florastor Kids, ProMod, Mysoline, finasteride, Flomax 0.4., Laxative, Imodium, Dulcolax, Enemeez, MiraLax. ALLERGIES Sulfa. FAMILY HISTORY Negative for prostate cancer. Unit #: [id number] #: [id number] Patient: MENODZA WIGGINS SOCIAL HISTORY Nonsmoker. REVIEW OF SYSTEMS Continued pedal edema, upper GI bleed. PHYSICAL EXAMINATION GENERAL: On examination, he is awake, alert, comfortable. Normal affect and mood. Friendly, unshaven. HEENT: Otherwise unremarkable. LUNGS: Clear. CARDIAC: Rate and rhythm regular this morning. ABDOMEN: Soft, nontender. AND RECTAL: Phallus uncircumcised. #[address], draining clear, yellow urine. Testes and epididymides normal descended. Digital not repeated, prostate felt 60 g benign in January. DIAGNOSTIC STUDIES LABORATORY RESULTS: PSA 61.9 as of 01/31/2017. Creatinine 1.8. Hemoglobin 9.5. Urine culture, no growth from 03/13/2017. IMAGING STUDIES: CT scan of abdomen and pelvis without contrast from 01/31/2017, which shows no evidence of adenopathy or suspicious bony changes. IMPRESSION 1. 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 2. Urinary retention previously complicated by hydronephrosis, did resolve with catheter. 3. Markedly elevated PSA of unclear significance. Certainly, a prostate cancer must be considered. PLAN At this point, we will check a PSA and ask this to be done in-house for prompt return unlike previously. We will repeat a BMP. Agree with plan for TUR of prostate when medically appropriate and this can be performed by one of us inpatient or outpatient. If PSA markedly elevated still, we would recommend bone scan. Thank you for the consultation, Dr. Wang. We will follow with you. Dictated by... Mendoza Jones M.D. CULLEN/blu TD: 03/16/2017 23:38 JOB #: [id number] Unit #: [id number] #: [id number] Patient: MENDOZA WIGGINS CONSULTATION REPORT Page 1 of 1 X Mendoza Jones MD X CONSULTATION REPORT
--- NOTE | ~2017-03-13 | CO ---
Unit #: [id number] #: [id number] Patient: MENDOZA WIGGINS [id number] [address] [address] [id number] I MR#: [id number] NAME: MENDOZA WIGGINS ROOM: 576 Age: 81 Sex: M Admission Date: 03/13/2017 : 1935 Attending Physician: Kathleen Esteban M.D. Primary Care Physician: Mendoza Malin D.O. Consultation Date: 03/13/2017 CONSULTATION REPORT REASON FOR CONSULTATION Possible GI bleed. HISTORY OF PRESENTING ILLNESS Mr. Wiggins is an 81-year-old gentleman with multiple medical problems, was in rehab, noted to have black stool and apparently coffee-grounds emesis and was complaining of some abdominal pain, also was transferred to the hospital. He to me denies any vomiting or abdominal pain; however has been having black stool apparently for several days. No previous history of peptic ulcer disease or upper endoscopy. He has been started on PPIs. PAST MEDICAL HISTORY Significant for; 1. Colon cancer, status post sigmoid colon resection several years ago. Last colonoscopy was 2010. 2. Congestive failure. 3. Hypertension. 4. Pneumonia. 5. Diabetes mellitus. 6. Acute on chronic kidney disease. 7. Type 2 diabetes mellitus. MEDICATIONS At home included Inderal, Zyloprim, Mysoline, Neurontin, Lipitor. ALLERGIES To sulfa. SOCIAL HISTORY Nonsmoker. Nonalcoholic. FAMILY HISTORY Noncontributory. REVIEW OF SYSTEMS A complete 10-point review of systems was done, which is unremarkable other than as mentioned above. PHYSICAL EXAMINATION VITAL SIGNS: Stable. Afebrile. Temperature 99, pulse 79, respirations 23, blood pressure 148/69. HEENT: Pupils equal and reactive. Sclerae anicteric. Oral mucosa moist. CHEST: Scattered rhonchi and a few basal crackles. CARDIOVASCULAR: Regular rate and rhythm. No murmurs. Unit #: [id number] #: [id number] Patient: MENDOZA WIGGINS ABDOMEN: Soft, nontender, and nondistended. No organomegaly or ascites. EXTREMITIES: Without clubbing, cyanosis, or edema. NEUROLOGIC: Grossly intact without any focal sensory or motor deficits. DIAGNOSTIC STUDIES LABORATORY RESULTS: BUN and creatinine at 67 and 2.9. White count elevated at 7.6, hemoglobin at 11.3. ASSESSMENT AND PLAN The patient with coffee-grounds emesis and epigastric pain noted at the rehab, also with black stool for several days. His hemoglobin seems to be stable at this point. He is definitely at high risk of peptic ulcer disease. We will consider upper endoscopy for evaluation. Continue PPI for now. We will watch H and H and give transfusion if needed. Thank you, Dr. Esteban for this interesting consult. We will follow along. Dictated by... Erica Guerrier/blu TD: 03/13/2017 18:07 JOB #: [id number] CONSULTATION REPORT Page 1 of 1 X Shriaz Herman MD X CONSULTATION REPORT
--- NOTE | ~2017-03-13 | OR ---
Unit #: [id number] #: [id number] Patient: MENDOZA WIGGINS [id number] [address] [address] [id number] I MR#: [id number] NAME: MENDOZA WIGGINS ROOM: 576 Date of Procedure: 03/16/2017 Admission Date: 03/14/2017 Surgeon: Shiraz Herman M.D. : 1935 Attending Physician: Harpreet Santillan M.D. Primary Care Physician: Mendoza Malin D.O. OPERATIVE REPORT PROCEDURE PERFORMED Esophagogastroduodenoscopy to descending duodenum. INDICATIONS FOR PROCEDURE The patient with anemia, possible GI bleeding, undergoing evaluation with upper endoscopy. MEDICATIONS Monitored anesthesia. POSTOPERATIVE FINDINGS Small hiatal hernia. Normal stomach, normal duodenum and distal duodenum. No source of stigmata or recent bleeding was seen. PLAN Continue current treatment and watch H and H transfuse as necessary. DESCRIPTION OF PROCEDURE The patient was explained of the procedure risk and benefits along with risk and benefits of anesthesia. He was brought to the endoscopy room. Propofol anesthesia was given. Bite block was placed. Scope was passed down the mouth into esophagus, stomach, duodenum, and distal duodenum. Findings as described. No biopsies taken. Gently, I pulled the scope out of the patient's mouth. He tolerated it well. No major complications were seen. Dictated by... Erica Guerrier/blu TD: 03/16/2017 17:45 JOB #: [id number] Unit #: [id number] #: [id number] Patient: MENDOZA WIGGINS OPERATIVE REPORT Page 1 of 1 X Shiraz Herman MD X PROCEDURE OPERATIVE NOTE
--- NOTE | ~2017-03-13 | EKG ---
PATIENT: MENDOZA WIGGINS UNIT #: [id number] Ventricular Rate: 84 BPM Atrial Rate: 84 BPM P-R Interval: 134 ms QRS Duration: 92 ms Q-T Interval: 404 ms QTC Calculation(Bezet): 477 ms P [place]: 52 degrees Calculated R [place]: 17 degrees Calculated T [place]: -22 degrees Diagnosis Line: Sinus rhythm with Premature atrial complexes Diagnosis Line: Nonspecific ST and T wave abnormality Diagnosis Line: Otherwise normal ECG Diagnosis Line: When compared with ECG of 30-JAN-2017 16:56, Diagnosis Line: Premature atrial complexes are now Present Diagnosis Line: Non-specific change in ST segment in Inferior Diagnosis Line: leads Diagnosis Line: Inverted T waves have replaced nonspecific T wave Diagnosis Line: abnormality in Inferior leads Diagnosis Line: Confirmed by CANDI CLAY MD ([id number]) on Diagnosis Line: 03/13/2017 5:07:30 PM INTERPRETING MD: RADHA
--- NOTE | ~2017-03-13 | CR63 ---
[facility] A Service of [facility] RADIOLOGY TEXT RESULTS PATIENT: MENDOZA WIGGINS LOCATION: [facility] 576-01 : 34 UNIT #: [id number] AGE: [address]: Harpreet Santillan MD SEX: M ORDER DR: [id number] [place], [place] [address] [id number] I MR#: [id number] Acc #: [id number] NAME: MENDOZA WIGGINS : 1935 SEX: M STUDY DATE/TIME: 03/13/2017 9:37 UNIT: [facility] ROOM: [facility] STUDY DESCRIPTION: CR Chest 2 View Attending Physician: Kathleen Esteban M.D. Ordering Physician: Kathleen Esteban M.D. Primary Care Physician: Mendoza Malin D.O. MEDICAL IMAGING REPORT This report is preliminary unless electronic signature is present EXAM PA and lateral chest INDICATIONS Shortness of breath this morning COMPARISON 01/30/2017 FINDINGS Stable mild interstitial pattern. No acute-appearing infiltrate. Cardiomegaly. Atherosclerotic calcification of the aorta. IMPRESSION Stable chest. No acute infiltrate. Dictated by... Jair Costello M.D. THIS IS AN ELECTRONICALLY VERIFIED REPORT Jair Costello M.D. at 03/15/2017 7:10 AM ARS/to TD: 03/13/2017 15:17 JOB #: [id number] MEDICAL IMAGING REPORT Page 1 of 1 COPY
--- NOTE | ~2017-03-13 | CO ---
Unit #: [id number] #: [id number] Patient: MENDOZA WIGGINS [id number] [address] [address] [id number] I MR#: [id number] NAME: MENDOZA WIGGINS ROOM: 576 Age: 81 Sex: M Admission Date: 03/14/2017 : 1935 Attending Physician: Harpreet Santillan M.D. Primary Care Physician: Mendoza Malin D.O. CONSULTATION REPORT REASON FOR CONSULTATION Preop clearance. HISTORY OF PRESENT ILLNESS This is an 81-year-old male, known to our care with prior history of hypertension; hyperlipidemia; diabetes mellitus; congestive heart failure; benign prostatic hypertrophy; colon cancer, status post chemo and surgery; and a negative stress test in 2006. An echocardiogram done in 01/2017 showed EF 60%, left ventricular hypertrophy, grade I diastolic function, mild and TR, and RVSP 45 to 50 mmHg. He was previously hospitalized in 01/2017 with bladder outlet obstruction and acute diastolic congestive heart failure. He presented to the ER with black emesis x2. He reported a 50 pounds weight loss over the last year. He had an EGD done in 03/16/2017. There are plans for TURP today. We were asked to evaluate him due to an episode of V-tach. Monitor review reveals 5-beat run of nonsustained V-tach and occasional PVCs. EKG on 03/13/2017 showed sinus rhythm and PACs. He denies chest pain, shortness of air, or palpitations. PAST MEDICAL HISTORY 1. Hypertension. 2. Hyperlipidemia. 3. Diabetes mellitus. 4. CHF. 5. Benign prostatic hypertrophy. 6. Colon cancer, status post chemo and surgery. 7. Negative stress test in 2006. 8. Echo with EF 60%, LVH, grade I diastolic dysfunction, mild and TR, RVSP 45 to 50 mmHg. PAST SURGICAL HISTORY 1. Hip surgery. 2. Colon surgery. SOCIAL HISTORY The patient has been in rehab since his hospitalization in January. He is a lifetime nonsmoker. He denies alcohol or illicit drug use. FAMILY HISTORY The patient denies the family history of premature coronary artery disease. ALLERGIES Unit #: [id number] #: [id number] Patient: MENDOZA WIGGINS Sulfa. HOME MEDICATIONS 1. Zovirax. 2. Lipitor. 3. Neurontin. 4. Inderal. 5. Zyloprim. 6. Magnesium. 7. Cozaar. 8. Glucophage. 9. Florastor. 10. Myocilin. 11. Finasteride. 12. Flomax. 13. Bisacodyl. 14. Imodium. 15. Dulcolax. 16. Tylenol. 17. Docusate. 18. MiraLax. REVIEW OF SYSTEMS A 10-point review of systems was conducted and is negative except for as noted in the HPI. PHYSICAL EXAMINATION VITAL SIGNS: Temperature 98.4, heart rate 59, respiratory rate 19, blood pressure 166/77. GENERAL: This is a pleasant 81-year-old elderly male, resting in bed, in no acute distress. HEENT: Head is atraumatic and normocephalic. Pupils are equal, round, and reactive to light. Mucous membranes are moist. NECK: Supple. Trachea midline. No carotid bruits. No JVD. CARDIOVASCULAR: S1 and S2. Regular rate and rhythm. Positive systolic murmur. No rubs or gallops. RESPIRATORY: Lungs are clear. Diminished in bases. Nonlabored respirations. ABDOMEN: Soft, nontender, and nondistended. Positive bowel sounds. EXTREMITIES: Pulses are palpable. 1 to 2+ pedal edema. No cyanosis. NEUROLOGIC: Alert and oriented x3. Moves all extremities equally and follows commands without difficulty. DIAGNOSTIC STUDIES LABORATORY RESULTS: Sodium 139, potassium 3.8, chloride 104, BUN 30, creatinine 1.1, glucose 127. Hemoglobin 9.8, hematocrit 28.7, white blood cell count 10.3, and platelets 185. AST 42, ALT 43, alkaline phosphatase 80. Point of care troponin on 03/13/2017 was less than 0.05 and repeat troponin was 0.03. Magnesium level 1.7 on 03/14/2017. IMAGING STUDIES: Chest x-ray shows stable cardiomegaly with no acute findings. CARDIOVASCULAR STUDIES: EKG shows sinus rhythm with PACs and a ventricular rate of 84. ASSESSMENT 1. Nonsustained ventricular tachycardia. Unit #: [id number] #: [id number] Patient: MENDOZA WIGGINS 2. Urinary retention/benign prostatic hypertrophy. 3. Anemia. 4. Gastrointestinal bleed, status post EGD. 5. Acute kidney injury on chronic kidney disease. 6. Hypertension. 7. Hyperlipidemia. 8. Diabetes mellitus. 9. Ejection fraction 60% per echo on 01/2017. PLAN He had probably run a nonsustained V-tach yesterday and occasional PVCs on the monitor. We will check the magnesium level. We will prophylactically give 1 g magnesium sulphate IV. Continue Mag-Ox, ARB, Inderal, and Lasix. Surgery clearance will be provided per Dr. Reynolds. Thank you for asking us to see this patient. We appreciate the consult. Dictated by... Buffy Jara Aprn for Naveed Reynolds M.D. MARGARITA/blu TD: 03/18/2017 10:03 JOB #: [id number] CONSULTATION REPORT Page 1 of 1 X X CONSULTATION REPORT
--- NOTE | ~2017-03-13 | CO ---
Unit #: [id number] #: [id number] Patient: MENDOZA WIGGINS [id number] [address] [place], [place] [address] [id number] I MR#: [id number] NAME: MENDOZA WIGGINS ROOM: 576 Age: 81 Sex: M Admission Date: 03/13/2017 : 1935 Attending Physician: Harpreet Santillan M.D. Primary Care Physician: Mendoza Malin D.O. CONSULTATION REPORT REASON FOR CONSULTATION Increased creatinine. HISTORY OF PRESENT ILLNESS Mr. Bailon is an 81-year-old male, presenting to hospital after experiencing repeated vomiting of black material. There has been no associated red blood. No abdominal pain. He has felt weak and dizzy with increased thirst. He has not had shortness of breath of increased degree and denies angina. He was noted to have increased creatinine of 2.9. He is not a great historian, but medical records are available showing that he had an episode of acute kidney injury in late 01/2017. His creatinine had been 1.1 in 12/2010, and was 3.5 on 01/30/2017 when he presented with complaint of increased swelling. He did have a history of benign prostatic hypertrophy, but did not really notice any significant voiding changes. He was on KOKI inhibitor at the time that was held on initial inpatient. Evaluation during hospitalization included no hydronephrosis, post bladder decompression by Lezama catheter. He had an immediate return of 500 mL and 2000 mL (over relatively in brief interval) creatinine during the hospitalization continued gradually declined to 1.3 by discharge on 02/02/2017. Reported internal medicines, included return use of MARLON therapy as Cozaar. There is no listing of nonsteroidals. PAST MEDICAL HISTORY Included hypertension, diabetes, benign prostatic hypertrophy. FAMILY HISTORY Negative for end-stage renal disease, but positive for diabetes. SOCIAL HISTORY Negative for active smoking. REVIEW OF SYSTEMS System review is difficult as he has some trouble concentrating and answers, but other than above noted features, some recent weight loss, and history of hemorrhoids that is negative and noncontributory. PHYSICAL EXAMINATION VITAL SIGNS: Included a blood pressure of 131/54, heart rate 77, respirations 18. GENERAL: He is awake, lethargic, and fluently conversant, although slow speech. HEENT: Conjunctiva pink. There was no bloody nasal discharge. Oral Unit #: [id number] #: [id number] Patient: MENDOZA WIGGINS mucous membranes are moist. NECK: Revealed no increased jugular venous pressure. No thyromegaly. Cervical and supraclavicular adenopathy was not notable. SKIN: Warm and dry with turgor diminished possibly adequate for age. HEART: Revealed no rub or S3. LUNGS: Clear with moderate air movement. ABDOMEN: Soft, nontender. Bowel sounds are present. : Included no CVA tenderness. Lezama present. VASCULAR: Included no flank bruits. EXTREMITIES: Showed trace to 1+ pretibial pitting and trace hip edema. DIAGNOSTIC STUDIES LABORATORY RESULTS: Included BUN 67, creatinine 2.9. Sodium 129, potassium 4.1, CO2 of 23, calcium 8.4. ASSESSMENT 1. Acute kidney injury. Occurring in the setting of some gastrointestinal bleed. There is no significant hypotension noted here, but he could have impaired renal compensation related to the Cozaar use. No other nephrotoxic or nonsteroidal exposure is identified. Only does have some edema. Intravascular volume is not certainly expanded may be at risk because of the vomiting and gastrointestinal losses. 2. History of obstructive uropathy, with Lezama catheter. 3. Hypertension with reasonable current control. PLAN Evaluation of gastrointestinal bleed is ongoing. Angiotensin receptor marco a will be discontinued. We will re-evaluate serially regarding volume and response of renal function to current resuscitation. Thanks for letting me see Mr. Bailon. Dictated by... Mendoza Tobias M.D. REL/modl TD: 03/15/2017 15:55 JOB #: [id number] CONSULTATION REPORT Page 1 of 1 X Mendoza Tobias MD X CONSULTATION REPORT
--- NOTE | ~2017-03-13 | DS ---
Unit #: [id number] #: [id number] Patient: MENDOZA WIGGINS [id number] [address] [address] [id number] I MR#: [id number] NAME: MENDOZA WIGGINS ROOM: 576 Age: 81 Sex: M Admission Date: 03/14/2017 : 1935 Discharge Date: Attending Physician: Harpreet Santillan M.D. Primary Care Physician: Mendoza Malin D.O. DISCHARGE SUMMARY PRIMARY DIAGNOSIS Possible gastrointestinal bleed, ruled out. SECONDARY DIAGNOSES 1. Acute kidney injury secondary to urinary tract infection. 2. Urinary tract infection secondary to indwelling catheter. 3. Nonsustained ventricular tachycardia. 4. Urinary obstruction, status post transurethral resection of prostate during this hospitalization. HOSPITAL COURSE Mr. Mendoza Wiggins is a patient who had presented with ABRAN and urinary prostatic obstruction in January and was discharged to subacute rehab with a Lezama catheter in place on February 02 with plans for a voiding trial the following week at the rehab. Apparently he failed the voiding trial and his catheter remained in place for the next 4-7 weeks. He subsequently presented back to the hospital from rehab with 2 bouts of black emesis. At the time of his presentation, it was also noted that his creatinine was up to 2.9 from a discharge creatinine of 1.3 a month and a half ago. Urinalysis had 10-25 white blood cells and he was treated for a urinary tract infection and given hydration and his catheter was exchanged and his creatinine improved back down to a baseline of 1.1 to 1.3. The patient requested to undergo transurethral resection of prostate and this was done on March 17, 2017. The patient also underwent an EGD to evaluate for his reported coffee ground emesis on 03/16/2017. He was found to have a normal stomach, normal duodenum and a small hiatal hernia but no source or stigmata of bleeding. His hemoglobin remained stable throughout his hospitalization after hydration at a level of 9.5 to 9.8 for 5 days. He had no further hematemesis. Patient has some chronic issues with some diminished cognition and reasoning. He has poor insight into his disease process as well as to his generalized weakness and debility. I spoke with his sister who lives in [place] and she reports that he was poorly compliant with physical therapy at the subacute rehab and she felt that this was the reason he was not progressing. He has been compliant with physical therapy here but is still very weak and clearly still needs subacute rehab. He is somewhat resistant to this but is going to be discharged back to subacute rehab as he clearly does not have enough persistence nor enough strength to care for himself at home. The patient is undergoing a voiding trial at this time and it is possible that he will have a coude catheter placed back in place prior to discharge if he fails this at the recommendation of Urology. He can then have the Unit #: [id number] #: [id number] Patient: MENDOZA WIGGINS catheter removed and another voiding trial next week if okay with Dr. Jones with Urology. Patient was seen in consultation with cardiology for some nonsustained V-tach prior to undergoing TURP and he was cleared for this procedure. Please see their consultation for details. DISCHARGE DISPOSITION To subacute rehab. DISCHARGE STATUS Stable. DISCHARGE ACTIVITY With assistance only. DISCHARGE DIET 2000 mg sodium heart SkyKick diet. DISCHARGE FOLLOWUP With his PCP in 2-5 weeks and follow up with Dr. Jones with Urology in 2 weeks. DISCHARGE MEDICATIONS 1. Tylenol 650 mg p.o. q.6 hours p.r.n. pain. 2. Magnesium oxide 400 mg p.o. daily. 3. Neurontin 300 mg p.o. daily. 4. Primidone 50 mg tablets, 2 tablets q. h.s. 5. Glucophage 500 mg p.o. b.i.d. 6. Imodium AD 2 mg p.o. q.12 hours p.r.n. diarrhea. 7. Acyclovir ointment, apply topically 5x a day to lips. 8. ProMod 60 mL p.o. b.i.d. 9. Inderal XL 120 mg p.o. daily. 10. Bisacodyl laxative 5 mg p.o. daily p.r.n. constipation for no bowel movement greater than 2 days. 11. Dulcolax 10 mg per rectum if no bowel movement in 4 days. 12. Docusate enema, 1 bottle per rectum if no bowel movement in four days. 13. MiraLAX 17 grams p.o. daily p.r.n. constipation if no bowel movement in 2 days. 14. Lipitor 40 mg p.o. daily. 15. Cozaar 25 mg p.o. daily. 16. Allopurinol 100 mg p.o. daily. 17. Finasteride 5 mg p.o. q. h.s. 18. Saccharomyces 250 mg p.o. b.i.d. 19. Levaquin 750 mg p.o. daily for 14 days. 20. [place] 5 mg, 1-2 tablets p.o. q.4 hours p.r.n. pain for 2 days, 20 tablets were prescribed by Urology. Dictated by... Erica Puentes/german TD: 03/18/2017 11:43 Unit #: [id number] #: [id number] Patient: MENDOZA WIGGNIS JOB #: [id number] DISCHARGE SUMMARY Page 1 of 1 X Harpreet Santillan MD X DISCHARGE SUMMARY
--- NOTE | ~2017-03-13 | OR ---
Unit #: [id number] #: [id number] Patient: IGOR WIGGINS [id number] [address] [place], [place] [address] [id number] I MR#: [id number] NAME: IGOR WIGGINS ROOM: 576 Date of Procedure: 03/17/2017 Admission Date: 03/14/2017 Surgeon: Igor Jones M.D. : 1935 Attending Physician: Harpreet Santillan M.D. Primary Care Physician: Igor Malin D.O. OPERATIVE REPORT PREOPERATIVE DIAGNOSIS Urinary retention from benign prostatic hyperplasia. POSTOPERATIVE DIAGNOSIS Urinary retention from benign prostatic hyperplasia, with bladder stones. PROCEDURE PERFORMED Cystoscopy with transurethral resection of prostate and removal of bladder stone. ANESTHESIA General. INDICATIONS FOR PROCEDURE This 81-year-old man with urinary retention, has BPH and has been on finasteride for over 6 weeks and desires TUR of prostate, at this time. He came to the hospital for a different reason and has been cleared medically for today's procedure. DESCRIPTION OF PROCEDURE The patient was given satisfactory general anesthesia and had already been on antibiotics. He was positioned in dorsal lithotomy. His Lezama catheter removed and cleaned up after he had soiled himself. The foreskin was pulled back and the penis carefully cleaned and thorough prep and drape performed. The 21-Liberian rigid cystoscope was introduced with a 30-degree lens and video noting a normal good-sized urethra markedly elongated verumontanum and bilobar hypertrophy. There were two jackstone in the bladder, normal symmetric orifices, severe trabeculation and some cellules, but no tumors or areas of suspicion. I was fortunately able to place the 28-Liberian resectoscope sheath, which was also fortunately large enough to allow removal of the two stones with the corresponding 27 TUR loop. Thus, there was no delay for laser and I started the TUR first on the right lobe resecting this down grossly, then the left lobe and floor to debulk the prostate. There was additional attention to the apices bilaterally and limited anterior resection. Then, all chips were evacuated and the rollerball applied to mucosal edges in 5 and 7 o'clock aggressively. With good hemostasis, the bladder was drained with a 24-Liberian three-way catheter. Chips were sent in formalin. Dictated by... Igor Jones M.D. Unit #: [id number] #: [id number] Patient: IGOR WIGGINS [facility]/modl TD: 03/18/2017 15:41 JOB #: [id number] CC: Kathleen Esteban M.D. OPERATIVE REPORT Page 1 of 1 X Igor Jones MD X PROCEDURE OPERATIVE NOTE
[~2017-03-13 06:42] MED LIST changes: +LIPITOR40 MG PO; +LOTREL 5-40 MG1 EACH PO; +MYSOLINE50 M2 PO; +NEURONTIN300 MG PO; +TRAMADOL HCL50 M2 PO
[2017-03-13 07:36] LABS: BASOPHIL# 0.1 X10e3 (0-0.3); BASOPHIL% 0.4 % (0-2.5); EOSINOPHIL% 0.1 % (0.0-7.0); HEMATOCRIT 33.9 % (38.0-50.0); HEMOGLOBIN 11.3 gm/dL (13.0-16.0); LYMPHOCYTE% 5.9 % (17.0-45.0); MEAN CELL VOLUME 86.3 FL (83-96); MEAN CORPUSCULAR HEMOGLOBIN 28.9 PG (28-34); MEAN CORPUSCULAR HGB CONC 33.4 g/dL (30-36); MONOCYTE# 1.3 X10e3 (0-1.0); MONOCYTE% 7.3 % (3.0-12.0); NEUTROPHIL# 15.2 X10e3 (1.5-7.1); NEUTROPHIL% 86.3 % (40-75); PLATELET COUNT 274 X10e3 (140-420); RED BLOOD COUNT 3.93 X10e (3.90-5.60); RED CELL DISTRIBUTION WIDTH 15.2 % (11.0-15.5); WHITE BLOOD COUNT 17.6 X10e3 (4.0-10.5)
[2017-03-13 07:38] LABS: DIFF IND YES
[2017-03-13 07:44] LABS: INR 1.2; PARTIAL THROMBOPLASTIN TIME 29.5 SECONDS (23.5-31.3); PROTHROMBIN TIME (PATIENT) 12.9 SECONDS (10.0-11.7)
[2017-03-13 07:54] LABS: ALBUMIN SERUM 2.5 g/dL (3.5-5.0); BILIRUBIN, DIRECT 0.2 mg/dL (0.0-0.2); BILIRUBIN,INDIRECT 0.5 mg/dL (0.0-0.9); BILIRUBIN,TOTAL 0.7 mg/dL (0.2-2.0); BUN/CREATININE RATIO 23.1; CALCIUM SERUM 8.4 mg/dL (8.4-10.2); CREATININE SERUM 2.9 mg/dL (0.6-1.4); GLOM FILT RATE Estimated 19.3 mL/min (>60); POTASSIUM 4.1 mmol/L (3.5-5.1); PROTEIN TOTAL SERUM 5.8 g/dL (6.0-8.3)
[2017-03-13 08:06] LABS: PLATELET ESTIMATE NORMAL (NORMAL)
[2017-03-13 08:08] LABS: ANISOCYTOSIS SL
[2017-03-13] MEDS ORDERED: LEVAQUIN750 MG PO (08:26)
[2017-03-13] MEDS ORDERED: ZOVIRAX30 GM TOP (08:30)
[2017-03-13] MEDS ORDERED: LIPITOR40 MG PO (08:30)
[2017-03-13] MEDS ORDERED: NEURONTIN300 MG PO (08:31)
[2017-03-13] MEDS ORDERED: INDERAL XL120 MG PO (08:31)
[2017-03-13] MEDS ORDERED: ZYLOPRIM100 MG PO (08:31)
[2017-03-13] MEDS ORDERED: MAGNESIUM400 M1 PO (08:32)
[2017-03-13] MEDS ORDERED: COZAAR25 MG PO (08:33)
[2017-03-13] MEDS ORDERED: GLUCOPHAGE500 MG PO (08:34)
[2017-03-13] MEDS ORDERED: FLORASTORKIDS250 MG PO (08:35)
[2017-03-13] MEDS ORDERED: MYSOLINE50 MG PO (08:36)
[2017-03-13] MEDS ORDERED: PROMOD946 ML PO (08:36)
[2017-03-13] MEDS ORDERED: FINASTERIDE5 M1 PO (08:37)
[2017-03-13] MEDS ORDERED: FLOMAX0.4 M1 PO (08:45)
[2017-03-13] MEDS ORDERED: LAXATIVE5 M1 PO (08:46)
[2017-03-13] MEDS ORDERED: IMODIUM A-D2 M2 PO (08:47)
[2017-03-13] MEDS ORDERED: DULCOLAX10 MG PR (08:48)
[2017-03-13] MEDS ORDERED: MAPAP325 M1 PO (08:50)
[2017-03-13] MEDS ORDERED: ENEMEEZ283 MG/5 M PR (08:51)
[2017-03-13] MEDS ORDERED: MIRALAX17 GM PO (08:54)
[2017-03-13 09:48] LABS: POC - CKMB 1.6 ng/mL (0.0-7.9); POC - TROPONIN <0.05 ng/mL (<=0.05)
[2017-03-13 09:52] LABS: CK TOTAL 29 IU/L (36-174)
[2017-03-13 09:59] LABS: URINE APPEARANCE CLEAR; URINE BILIRUBIN NEG (NEG); URINE BLOOD 3+ (NEG); URINE COLOR YELLOW; URINE GLUCOSE NEG (NEG); URINE KETONE NEG (NEG); URINE LEUKOCYTE ESTERASE TRACE (NEG); URINE NITRATE NEG (NEG); URINE PROTEIN 1+ (NEG); URINE SPECIFIC GRAVITY 1.011 (1.003-1.035); URINE UROBILINOGEN 0.2 MG/DL (NEG)
[2017-03-13 10:02] LABS: CULTURE INDICATED? YES; URINE BACTERIA AUWI NEG (NEGATIVE); URINE SQUAMOUS EPITHELIAL CELL NONE SEEN /[HPF]
[2017-03-13 10:42] LABS: HEMATOCRIT 34.9 % (38.0-50.0); HEMOGLOBIN 11.3 gm/dL (13.0-16.0)
[2017-03-13 16:01] LABS: HEMOGLOBIN 9.5 gm/dL (13.0-16.0)
[2017-03-13 16:20] LABS: CK TOTAL 21 IU/L (36-174)
[2017-03-13 21:40] LABS: CK TOTAL 18 IU/L (36-174)
[2017-03-13 22:55] LABS: HEMATOCRIT 29.7 % (38.0-50.0); HEMOGLOBIN 9.7 gm/dL (13.0-16.0)
[2017-03-14 04:39] LABS: HEMOGLOBIN 9.9 gm/dL (13.0-16.0); MEAN CELL VOLUME 85.8 FL (83-96); MEAN CORPUSCULAR HEMOGLOBIN 29.3 PG (28-34); MEAN CORPUSCULAR HGB CONC 34.2 g/dL (30-36); MEAN PLATELET VOLUME 7.5 FL (6.5-11.5); RED BLOOD COUNT 3.38 X10e (3.90-5.60); RED CELL DISTRIBUTION WIDTH 15.1 % (11.0-15.5)
[2017-03-14 05:02] LABS: ALBUMIN SERUM 2.4 g/dL (3.5-5.0); BILIRUBIN,TOTAL 0.6 mg/dL (0.2-2.0); BUN/CREATININE RATIO 27.5; CALCIUM SERUM 8.4 mg/dL (8.4-10.2); CREATININE SERUM 2.4 mg/dL (0.6-1.4); GLOM FILT RATE Estimated 24.2 mL/min (>60); MAGNESIUM 1.7 mg/dL (1.6-3.0); POTASSIUM 3.7 mmol/L (3.5-5.1); PROTEIN TOTAL SERUM 5.4 g/dL (6.0-8.3)
[2017-03-14 16:19] LABS: HEMATOCRIT 30.2 % (38.0-50.0); HEMOGLOBIN 9.9 gm/dL (13.0-16.0)
[2017-03-15 05:44] LABS: HEMOGLOBIN 9.5 gm/dL (13.0-16.0); MEAN CELL VOLUME 85.4 FL (83-96); MEAN CORPUSCULAR HGB CONC 33.9 g/dL (30-36); MEAN PLATELET VOLUME 7.4 FL (6.5-11.5); RED BLOOD COUNT 3.28 X10e (3.90-5.60); RED CELL DISTRIBUTION WIDTH 14.9 % (11.0-15.5); WHITE BLOOD COUNT 11.1 X10e3 (4.0-10.5)
[2017-03-15 06:33] LABS: BUN/CREATININE RATIO 30.55; CALCIUM SERUM 8.3 mg/dL (8.4-10.2); CREATININE SERUM 1.8 mg/dL (0.6-1.4); GLOM FILT RATE Estimated 34.3 mL/min (>60); POTASSIUM 3.7 mmol/L (3.5-5.1)
[2017-03-15 23:27] LABS: URINE APPEARANCE CLEAR; URINE BILIRUBIN NEG (NEG); URINE BLOOD NEG (NEG); URINE COLOR YELLOW; URINE GLUCOSE NEG (NEG); URINE KETONE NEG (NEG); URINE LEUKOCYTE ESTERASE 1+ (NEG); URINE NITRATE NEG (NEG); URINE PROTEIN NEG (NEG); URINE SPECIFIC GRAVITY 1.014 (1.003-1.035); URINE UROBILINOGEN 0.2 MG/DL (NEG)
[2017-03-15 23:29] LABS: URINE BACTERIA AUWI NEG (NEGATIVE); URINE SQUAMOUS EPITHELIAL CELL OCC /[HPF]
[2017-03-16 07:42] LABS: HEMATOCRIT 28.3 % (38.0-50.0); HEMOGLOBIN 9.7 gm/dL (13.0-16.0); MEAN CELL VOLUME 85.8 FL (83-96); MEAN CORPUSCULAR HEMOGLOBIN 29.4 PG (28-34); MEAN CORPUSCULAR HGB CONC 34.3 g/dL (30-36); MEAN PLATELET VOLUME 7.5 FL (6.5-11.5); RED BLOOD COUNT 3.3 X10e (3.90-5.60)
[2017-03-16 08:15] LABS: ALBUMIN SERUM 2.4 g/dL (3.5-5.0); BILIRUBIN,TOTAL 0.8 mg/dL (0.2-2.0); BUN/CREATININE RATIO 27.85; CALCIUM SERUM 8.4 mg/dL (8.4-10.2); CREATININE SERUM 1.4 mg/dL (0.6-1.4); GLOM FILT RATE Estimated 46.5 mL/min (>60); POTASSIUM 4.1 mmol/L (3.5-5.1); PROTEIN TOTAL SERUM 5.1 g/dL (6.0-8.3)
[2017-03-16 08:51] LABS: BUN/CREATININE RATIO 27.14; CALCIUM SERUM 8.4 mg/dL (8.4-10.2); CREATININE SERUM 1.4 mg/dL (0.6-1.4); GLOM FILT RATE Estimated 46.5 mL/min (>60); POTASSIUM 4.2 mmol/L (3.5-5.1)
[2017-03-16 10:30] LABS: PROSTATE SPECIFIC AG DIAG 8.14 ng/ml (0.0-4.0)
[2017-03-17 05:54] LABS: HEMATOCRIT 28.7 % (38.0-50.0); HEMOGLOBIN 9.8 gm/dL (13.0-16.0); MEAN CELL VOLUME 85.5 FL (83-96); MEAN CORPUSCULAR HEMOGLOBIN 29.2 PG (28-34); MEAN CORPUSCULAR HGB CONC 34.2 g/dL (30-36); MEAN PLATELET VOLUME 7.6 FL (6.5-11.5); RED BLOOD COUNT 3.35 X10e (3.90-5.60); RED CELL DISTRIBUTION WIDTH 15.2 % (11.0-15.5); WHITE BLOOD COUNT 10.3 X10e3 (4.0-10.5)
[2017-03-17 06:41] LABS: ALBUMIN SERUM 2.5 g/dL (3.5-5.0); BILIRUBIN,TOTAL 0.5 mg/dL (0.2-2.0); BUN/CREATININE RATIO 27.27; CALCIUM SERUM 8.3 mg/dL (8.4-10.2); CREATININE SERUM 1.1 mg/dL (0.6-1.4); GLOM FILT RATE Estimated 62.2 mL/min (>60); POTASSIUM 3.8 mmol/L (3.5-5.1); PROTEIN TOTAL SERUM 5.5 g/dL (6.0-8.3)
[2017-03-18 07:21] LABS: BASOPHIL# 0.1 X10e3 (0-0.3); BASOPHIL% 0.6 % (0-2.5); EOSINOPHIL# 0.2 X10e3 (0-0.7); EOSINOPHIL% 1.9 % (0.0-7.0); HEMATOCRIT 28.5 % (38.0-50.0); HEMOGLOBIN 9.7 gm/dL (13.0-16.0); LYMPHOCYTE# 1.3 X10e3 (1.0-3.5); LYMPHOCYTE% 12.9 % (17.0-45.0); MEAN CELL VOLUME 86.4 FL (83-96); MEAN CORPUSCULAR HEMOGLOBIN 29.4 PG (28-34); MEAN PLATELET VOLUME 7.9 FL (6.5-11.5); MONOCYTE# 1.1 X10e3 (0-1.0); NEUTROPHIL# 7.7 X10e3 (1.5-7.1); NEUTROPHIL% 73.6 % (40-75); PLATELET COUNT 174 X10e3 (140-420); RED CELL DISTRIBUTION WIDTH 15.1 % (11.0-15.5); WHITE BLOOD COUNT 10.4 X10e3 (4.0-10.5)
[2017-03-18 07:22] LABS: DIFF IND NO
[2017-03-18 07:34] LABS: BUN/CREATININE RATIO 18.46; CALCIUM SERUM 8.7 mg/dL (8.4-10.2); CREATININE SERUM 1.3 mg/dL (0.6-1.4); GLOM FILT RATE Estimated 50.8 mL/min (>60); MAGNESIUM 1.7 mg/dL (1.6-3.0)
[2017-03-18] MEDS ORDERED: LORTAB 5-325 M1 EACH PO (08:55)
[2017-03-18] MEDS ORDERED: LEVAQUIN750 MG PO (08:56)
== END 2017-03-18 16:50 | DRG 666 ==
LOC: CED 06:42 → CEDOF 08:24 → CED 08:34 → C5C 10:03 → CEDOF 10:03 → C5C 10:20 → CED 10:20 → C5C 03-14 07:04 → CEDOF 03-14 10:20 → C5C 03-14 10:20
PROVIDERS: Emergency Medicine; Family Medicine; Internal Medicine; Internal Medicine Nephrology; Urology
PROC: 0DJ08ZZ Inspection of Upper Intestinal Tract, Via Natural or Artificial Opening Endoscopic (ICD-10-PCS; 2017-03-16)
PROC: 0TCB8ZZ Extirpation of Matter from Bladder, Via Natural or Artificial Opening Endoscopic (ICD-10-PCS; 2017-03-17)
PROC: 0VT08ZZ Resection of Prostate, Via Natural or Artificial Opening Endoscopic (ICD-10-PCS; principal; 2017-03-17 17:30)
DX: T83.518A Infection and inflammatory reaction due to other urinary catheter, initial encounter (principal); N17.9 Acute kidney failure, unspecified; I47.2 Ventricular tachycardia; I13.0 Hypertensive heart and chronic kidney disease with heart failure and stage 1 through stage 4 chronic kidney disease, or unspecified chronic kidney disease; I50.32 Chronic diastolic (congestive) heart failure; N39.0 Urinary tract infection, site not specified; E11.22 Type 2 diabetes mellitus with diabetic chronic kidney disease; E78.5 Hyperlipidemia, unspecified; Z85.038 Personal history of other malignant neoplasm of large intestine; Z79.84 Long term (current) use of oral hypoglycemic drugs; Z88.2 Allergy status to sulfonamides; D64.9 Anemia, unspecified; D72.829 Elevated white blood cell count, unspecified; N40.1 Benign prostatic hyperplasia with lower urinary tract symptoms; R33.8 Other retention of urine; N21.0 Calculus in bladder; N32.89 Other specified disorders of bladder; K44.9 Diaphragmatic hernia without obstruction or gangrene; N18.3 Chronic kidney disease, stage 3 (moderate)
CPT/HCPCS: 36415; 71020; 80048; 80053; 80076; 81003; 82365; 82550; 82553; 82947; 83036; 83735; 84153; 84484; 85014; 85018; 85025; 85027; 85610; 85730; 86850; 86900; 86901; 87040; 87086; 88300; 88305; 93005; 94760; 96374; 97116; 97162; 97164; 97166; 97168; 97530; 97532; 97535; 99285; C1887; C9113; G8978-GP; G8979-GP; G8987-GO; G8988-GO; J0696; J1815; J2270; J3475